=== PATIENT | male | born 1960 | race Caucasian/White ===

== ENCOUNTER 2024-06-29 05:00 | Outpatient (RCR) | payer OTHER, SELFPAY | END 2024-07-28 23:59 | disposition home or self-care (01) | LOC: SOT 05:00 | PROVIDERS: Visit Provider Student in an Organized Health Care Education/Training Program | DX: G56.02 Carpal tunnel syndrome, left upper limb (principal); G56.22 Lesion of ulnar nerve, left upper limb | CPT/HCPCS: 97530; 97760; L3763 ==

== ENCOUNTER → 2024-06-29 14:20 | Outpatient (BNVA) | payer OTHER, SELFPAY | PROVIDERS: PCP Family Medicine; Visit Provider Physician Assistant | DX: G56.02 Carpal tunnel syndrome, left upper limb (principal); G56.22 Lesion of ulnar nerve, left upper limb | CPT/HCPCS: 73130; 99204 ==

== ENCOUNTER 2024-07-15 05:49 | Day surgery (SDC) | payer OTHER, SELFPAY ==
[2024-07-15] VITALS (12 sets, daily range): BP systolic 121–167; BP diastolic 64–87; PULSE 60–69; RESP 16–18; TEMP 36.3–36.9; O2SAT 91–98; BMI 33.4
[2024-07-15] MEDS: ketorolac 30 mg/mL INJ IVP (06:22)
[2024-07-15] MEDS: acetaminophen 1,000 MG/100 ML PIGGYBACK 400 MG IV (06:23)
[2024-07-15] MEDS: sodium chloride 0.9% 1,000 ML 30 ML IV ×2 (06:26→06:30)
--- NOTE | 2024-07-15 07:01 | W.PM.OPSUD ---
Surgery/Procedure H&P Update DATE OF PROCEDURE: July 15, 2024 DATE H&P PERFORMED: 06/29/24 H&P UPDATE INFORMATION: I have reviewed H&P completed within last 30 days, I have examined patient prior to procedure and No changes to prior documentation CHANGES TO PREVIOUS DOCUMENTATION: Patient seen and examined in the preoperative holding area. Reviewed history physical exam positive Tinel's over carpal and cubital tunnel he has had right carpal tunnel and cubital tunnel surgery in the past and has done well with this. Once again reiterated that this has been further time since his last surgery that obviously his disease process could be further along from the standpoint of severity as well as potential for incomplete nerve recovery. He understands this as far as the ins and outs procedure the risk benefits complication alternatives surgery discharge is Magnalax proceed with surgical intervention. All questions have been answered at this time. Will proceed with left carpal tunnel release, left cubital tunnel release with possible nerve transposition. All questions answered at this time. PREOP DIAGNOSIS: Left carpal tunnel syndrome, left cubital tunnel syndrome PRIMARY INDICATION FOR PROCEDURE: Left carpal tunnel syndrome left cubital tunnel syndrome PLANNED PROCEDURE: Operation Date: 07/15/24 07:00 Proposed Procedures p left Carpal Tunnel Release(Left) - Rasheed Milton, DO s Left Cubital Tunnel Release(Left) - Rasheed Milton DO s POSSIBLE Ulnar Nerve Transposition(Left) - Rasheed Milton DO
--- NOTE | 2024-07-15 07:07 | PC.NURSE ---
0655: left shoulder block performed by susan using 20 ml of 0.5% ropivicaine and ultrasound guidance
[2024-07-15] MEDS: ceFAZolin 2,000 MG in sodium chloride 0.9% (plus) 50 ML 100 MG IV (07:08)
--- NOTE | 2024-07-15 07:45 | ANES.PREANE2 ---
Pre-Anesthetic Assessment Height/Weight: Height 1.73 m Weight 99.79 kg Temp Pulse Resp BP Pulse Ox O2 Del Method 98.5 F 60 18 167/85 96 Room Air 07/15/24 06:06 07/15/24 06:06 07/15/24 06:06 07/15/24 06:06 07/15/24 06:06 07/15/24 06:11 Preop Diagnosis: Left carpal tunnel syndrome, left cubital tunnel syndrome Operation Date: 07/15/24 07:00 Proposed Procedures p left Carpal Tunnel Release(Left) - Rasheed Ingham, DO s Left Cubital Tunnel Release(Left) - Rasheed Yoan, DO s POSSIBLE Ulnar Nerve Transposition(Left) - Rasheed Ingham, DO Familial anesthetic complications: none Was Beta Pedro taken within 24 hours: N/A Was Clonidine taken within 24 hours: N/A Last intake: Intake Last Liquid Date 07/14/24 Last Liquid Time 23:00 Last Solid Date 07/14/24 Last Solid Time 20:00 Social No alcohol and No tobacco Exam alert, oriented x 3, clear to auscultation bilaterally and regular rate & rhythm Airway Submandibular: within normal limits Cervical ROM: within normal limits Mallampati: Class II Dentition: false (upper) CV/HEM Hypertension GI Gastroesophageal Reflux Disease Anesthetic Plan ASA status: 2 Anesthesia: General and Regional (specify below) (Left interscalene blk) Medications/Allergies Home Medications ?Medication ?Instructions ?Recorded ?Confirmed ?Last Taken ?Type carboxymethylcellulose sodium 1 % 1 drp ophthalmic (eye) ONCE 06/29/24 07/14/24 07/14/24 History eye drops gabapentin 300 mg capsule 300 mg PO TID 06/29/24 07/14/24 07/14/24 History ketotifen fumarate 0.025 % (0.035 1 drp ophthalmic (eye) BID 06/29/24 07/14/24 07/14/24 History %) eye drops latanoprost 0.005 % eye drops 1 drp ophthalmic (eye) DAILY 06/29/24 07/14/24 07/14/24 History loratadine 10 mg tablet 10 mg PO DAILY 06/29/24 07/14/24 Unknown History methocarbamol 500 mg tablet 500 mg PO QID 06/29/24 07/14/24 Unknown History omega-3 fatty acids 1,000 mg PO DAILY 06/29/24 07/14/24 Unknown History propranolol 20 mg tablet 20 mg PO DAILY 06/29/24 07/14/24 07/14/24 History sertraline 100 mg tablet 100 mg PO DAILY 06/29/24 07/14/24 07/14/24 History timolol maleate 0.5 % eye drops 1 drp ophthalmic (eye) DAILY 06/29/24 07/14/24 07/14/24 History hydrocodone 5 mg-acetaminophen 325 1 tab PO Q6H PRN pain 5 days #20 07/15/24 Unknown Rx mg tablet tabs Allergies Allergy/AdvReac Type Severity Reaction Status Date / Time adhesive tape Allergy Intermediate ALGY-Rash Verified 06/29/24 14:46 Current Medications Generic Name Dose Route Start Last Admin Trade Name Freq PRN Reason Stop Dose Admin Sodium Chloride 1,000 mls @ 30 mls/hr 07/14/24 14:30 07/15/24 06:26 Sodium Chloride 0.9% IV 07/15/24 14:29 30 mls/hr .Q24H MATHIEU Administration PFSH Anesthesia Social History Smoking and tobacco/nicotine status: tobacco/nicotine user, details unknown Data Anesthesia Cardiac Studies: No Data to Display Anesthesia Procedures Nerve Block Nerve Block 1: Main Anesthesia: general anesthesia Time Out Performed: Yes Consent: requested by attending/covering physician and patient agrees to proceed Nerve block location: interscalene (left) Anesthesia monitors applied: pulse oximetry, EKG, BP cuff and oxygen Nerve block position: semi sitting Anesthetic Used: ropivicaine 0.5% Amount of anesthesia used (mL): 20 Ultrasound used to: recognize landmarks and visualize and ID brachial plexus Nerve Stimulator Used?: No Interscalene/Femoral BLK: 2 stimuplex 22 g needle used for position and inplane approach Injection: neg aspiration of heme Patient Tolerated Procedure: well Complications: none
--- NOTE | 2024-07-15 09:00 | P.BOP_ITS ---
Date of Procedure: [July 15, 2024] Surgeon: [Dr. Yoan DO] [place] Steward/Stewardess(s): [Morgan Milton PA-C] Procedure(s) performed: [Left carpal tunnel release left cubital tunnel release Ulnar Nerve Transposition] Findings of the procedure(s): [Left carpal tunnel syndrome and left cubital tunnel syndrome with subluxation of ulnar nerve with range of motion so transposition was performed. Procedure went well and as planned.] Estimated blood loss: [15 mL] Specimen(s) removed: [N/A] Post-operative diagnosis: [Left carpal tunnel syndrome and left cubital tunnel syndrome with subluxation of ulnar nerve with range of motion.]
--- NOTE | 2024-07-15 09:02 | PM.PACU ---
PACU note Narrative: Patient is a 63-year-old male that just underwent a left carpal tunnel left cubital tunnel release with ulnar nerve transposition. Patient transferred to PACU in stable condition. Pain is well controlled. Dressing and splint on hand and arm is dry and in place. Patient's fingers are warm and well-perfused. Patient can wiggle fingers. normal cap refill under 2 seconds. Sensation to hand intact. Exam: awake Disposition: discharged
[2024-07-15] MEDS: fentaNYL 50 mcg/mL INJ 2mL IVP (09:15)
[2024-07-15] MEDS: HYDROcodone-acetaminophen 5-325 mg Tablet 1 TAB PO (09:57)
--- NOTE | 2024-07-15 12:24 | P.OP_ITS ---
Operative Report Date of procedure: July 15, 2024 Surgeon: Rasheed Milton DO Corporate Banking Officer: Morgan Milton PA-C: PA was necessary for assistance in this case with hand positioning to execute the procedure, retraction and protection of neurovascular structures as well as to assist with wound closure and dressing application. Procedure: Preoperative diagnosis: Left carpal tunnel syndrome Left?cubital tunnel syndrome post-op diagnosis:? Left carpal tunnel syndrome and Left?cubital tunnel syndrome and subluxating ulnar nerve Post-op findings: See operative note Procedure done: Left carpal tunnel release Left?cubital tunnel release(ulnar nerve decompression) Left ulnar nerve?transposition?and neurolysis Surgeon: Rasheed Milton DO Estimated blood loss: 15 cc Tourniquet Time: 49 minutes IV fluids: See anesthesia record Complications: None Findings: See operative report narrative Condition: stable Disposition: same day Brief History: Patient is a pleasant 63-year-old Male was seen evaluated in the outpatient setting for Left ulnar nerve neuropathy at the elbow and Left carpal tunnel syndrome. Patient had NCS findings consistent with this.? ?On examination in the office patient findings are consistent with this preoperative diagnosis. We had detailed discussion in office about continued nonoperative intervention versus operative intervention.? Patient understands the risk benefits complications alternatives to surgical and nonsurgical treatment options.? Patient understands the risks include but not limited to make it better, make it worse, infection, permanent injury to nerve, decreased function and sensation to the hand with persistent weakness.? Given these risks patient understands and agrees to proceed with current plan.? Patient elects to proceed with a surgical intervention for left carpal tunnel release, left cubital tunnel release with possible ulnar nerve transposition. All questions answered. Procedure: Patient was seen and evaluated in the preoperative holding area.? The consent that was filled out in office was reviewed with patient. Correct extremity was then marked.? Patient was seen evaluated by the preoperative team as well as anesthesia department.? Once cleared for surgery patient was then taken to the operative suite and?transported onto the operative table all bony prominences were well-padded and patient was secured to the table.? Left upper extremity was placed on an armboard.? Patient then underwent anesthesia per the anesthesia department. The Left upper extremity tourniquet was applied. Patient's Left upper extremity was then prepped and draped in standard orthopedic fashion.? This point a final timeout was performed. Patient received appropriate preop antibiotics. Esmarch tourniquet was used to exsanguinate the operative extremity and was insufflated to 250 mmHg.? I started with the carpal tunnel release first.? I made a standard open carpal tunnel release starting with the distal most extent in the palm at the Zee's cardinal line and the incision line was made in line with the fourth ray and ended just distal to the wrist crease.? Sharp scalpel incision was made through skin and subcutaneous tissue I then utilizing self retainer then began to dissect with dissection scissors split longitudinally the palmar fascia.? Next I then utilizing my executive administrative assistant Jarocho retractors subsequently utilizing scalpel feathered through the palmaris brevis as well as through the?transverse carpal ligament distally.? Once I encountered the floor of the?transverse carpal ligament and entered into the carpal tunnel I then switched to dissection scissors.? Carefully released the distal extent of the?transverse carpal ligament to the palmar fat.? Care was to protect the recurrent branch and not injured this during this part of the case.? Next I then placed a Goodman underneath the?transverse carpal ligament proximally to protect the nerve in the carpal tunnel contents.? And then I subsequently under loupe magnification utilize my dissection scissors to release the?transverse carpal ligament into the antebrachial fascia under direct visualization with care to keep my scissors with a curved ulnarly away from the palmar cutaneous branch.? The?transverse carpal was then completely decompressed proximally and a Goodman was then placed both distally and proximally throughout the carpal tunnel and had complete decompression of the nerve.? The nerve did appear to have hourglass shape as it went through the carpal tunnel.? With significant irritation noted around the nerve.? No masses were noted within the contents of the carpal tunnel.? This completed the carpal tunnel release and then I subsequently irrigated the wound bed and placed a wet Ray-Camilla into the incision for later closure. Standard curvilinear incision was made centering over the ulnar nerve between the medial epicondyle and olecranon process.? Sharp scalpel excision through skin and subcutaneous tissue was performed.? Once I encountered subcutaneous tissue I then utilized dissection scissors to spread in the path of the [facility] and care was made to protect any nerve branches throughout this case.? I then utilized a scalpel to complete my dissection directly on over to the flexor pronator mass and elevated this fat tissue directly off of the fascia.? I started my dissection of the ulnar nerve the nerve proximally.? Once identified I then utilized Littler dissection scissors and decompress the nerve completely and proximally and utilized blunt dissection to make sure there was no entrapment proximally..? Once decompressed proximally I then traced the nerve distal through Smith's ligament and as it entered the FCU fascia aponeurosis and completed by decompression and ulnar nerve neurolysis distally.? The nerve was completely released in situ no areas of entrapment I was able to place my finger distally and proximally with no areas entrapment along the nerve.? At this point in time my in situ release was completed, at baseline patient already had ulnar nerve subluxating over the medial epicondyle and I then subsequently took the elbow through range of motion and subluxation was noted over the medial epicondyle and plan for ulnar nerve?transposition?was made.? ?I thoroughly irrigated the nerve throughout the case to prevent it from drying out. Of note the ulnar nerve had significant irritation and inflammation.? Next while protecting the nerve as well as care to not injure any venous structures I then excised the intermuscular septum proximally with bipolar electrocautery.? This allowed for there to be no entrapment proximally with my?transposition.? Next I then performed my standard Z- flap into the fascia.? This created a large thick fascial band that would be sutured to secure the ulnar nerve when its been?transposed.? Once the incision was made just through the fascia I then mobilized just the fascia and freed the muscle belly off of this.? I then sequentially excised the T and Y shaped fascial bands throughout the flexor pronator mass to prevent any type of bandage strip structure irritating the?transposition.? At this point I had only soft tissue and muscle belly with which the ulnar nerve could rest.? I had to do a small excision of the muscle belly distally to create a nice trough for the nerve to lie.? At this point I t hen mobilized the nerve and this was?transposed into the flexor pronator insertion under the fasica flaps.? There was no evidence of kinking/tethering of the nerve.? this was significantly redundant and lax with no signs of tension or entrapment.? I then utilized a 3-0 Ethibond suture and approximated the fascia flaps that was created and the Left knee okay okay secured with horizontal interrupted mattress stitches.? I was able to place 2 fingers under the repair with no evidence of entrapment and the elbow was taken through range of motion and no areas of entrapment or kinking were noted on the nerve and the nerve was redundant relaxed in all ranges of motion.? This completed my ulnar nerve decompression of the?cubital tunnel as well as ulnar nerve?transposition.? Wound bed was then thoroughly irrigated.? Tourniquet was deflated.? Maintained exact hemostasis with bipolar electrocautery.? I did place a frida drain to prevent hematoma formation. As result the skin was reapproximated with interrupted Vicryl subcutaneous suture 3-0.? I next utilized a running horizontal mattress stitch with 3-0 nylon.? Extremity was then cleaned and the incision was then covered with Xeroform 4 x 4's ABD Curlex and soft roll and a?cubital splint was then applied with an Kunal wrap.? Patient was then awakened from anesthesia and taken to PACU in stable condition. Disposition: Patient taken to PACU in stable condition.? Patient given appropriate discharge instructions as well as pain medication.? We will get Patient in with OT hand therapy for splint takedown dressing change and drain pull. Patient will see Ortho in office in 2 weeks.? pt understands? if they has any questions they can contact the office.
--- NOTE | 2024-07-15 12:59 | ANE.PACU2 ---
Inpatient post-anesthesia follow up: Airway intact: Yes Vital signs: Temperature 97.3 F Pulse Rate 60 Respiratory Rate 17 Blood Pressure 136/75 Pulse Oximetry 94 Oxygen Delivery Me thod Room Air Oxygen Flow Rate 8 Fraction of Inspir ed Oxygen Hydration adequate: Yes Nausea and vomiting: No Pain level: 2 Mental status: Baseline
== END 2024-07-15 10:35 | disposition home or self-care (01) ==
PROVIDERS: PCP Family Medicine; Visit Provider Student in an Organized Health Care Education/Training Program
PROC: (CPT 64721; principal; 2024-07-15 07:00)
PROC: (CPT 64718; 2024-07-15 07:00)
PROC: (CPT 64718; 2024-07-15 07:00)
DX: G56.02 Carpal tunnel syndrome, left upper limb (principal); G56.22 Lesion of ulnar nerve, left upper limb; K21.9 Gastro-esophageal reflux disease without esophagitis; I10 Essential (primary) hypertension; Z79.899 Other long term (current) drug therapy; Z91.09 Other allergy status, other than to drugs and biological substances
CPT/HCPCS: 64718; 64721; J0131; J0690; J1100; J1171; J1885; J2371; J2405; J2704; J2795; J3010; J3490; J7030; J9999

== ENCOUNTER → 2024-08-03 10:27 | Outpatient (BNVA) | payer OTHER, SELFPAY | PROVIDERS: PCP Family Medicine; Visit Provider Physician Assistant | DX: Z98.890 Other specified postprocedural states (principal) | CPT/HCPCS: 99024 ==

== ENCOUNTER → 2024-09-14 10:00 | Outpatient (BNVA) | payer OTHER, SELFPAY | PROVIDERS: PCP Family Medicine; Visit Provider Physician Assistant | DX: Z98.890 Other specified postprocedural states (principal) | CPT/HCPCS: 99024 ==